=== PATIENT | female | born 1950 | race Hispanic/Latino ===

== ENCOUNTER 2021-04-11 06:31 | Day surgery (SDC) | payer MEDICARE, OTHER ==
[2021-04-11 07:24] LABS: Basophils % (Auto) 0.4 % (0.0-1.8); Eosinophils # (Auto) 0.2 K/mm3 (0.0-0.4); Eosinophils % (Auto) 3.9 % (0.0-4.3); Hematocrit 35.5 % (30.3-42.9); Hemoglobin 11.9 gm/dl (10.1-14.3); Lymphocytes # (Auto) 1.5 K/mm3 (1.2-5.4); Lymphocytes % (Auto) 29.2 % (13.4-35.0); Mean Corpuscular HGB Conc 34 % (30-34); Mean Corpuscular Volume 81 fl (79-97); Monocytes # (Auto) 0.7 K/mm3 (0.0-0.8); Monocytes % (Auto) 13.1 % (0.0-7.3); Platelet Count 211 K/mm3 (140-440); Red Blood Count 4.37 M/mm3 (3.65-5.03); Red Cell Distribution Width 16.9 % (13.2-15.2)
[2021-04-11 07:35] LABS: Blood Urea Nitrogen 10 mg/dL (7-17); Calcium 9.8 mg/dL (8.4-10.2); Hemolysis Index 6
[2021-04-11 07:36] LABS: INR 0.93 (0.87-1.13)
[2021-04-11 07:46] LABS: BUN/Creatinine Ratio 14
[2021-04-11] MEDS ORDERED: HEPARIN/NS 5000 UNIT/500ML 1,000 ML IR ONE (08:09)
[2021-04-11] MEDS ORDERED: NITROGLYCERIN SYRINGE 0 ML ONE (08:09)
[2021-04-11] MEDS: SODIUM CHLORIDE 0.9% 500 ML 500 ML IV SCH ×2 (08:30→08:59)
[2021-04-11] MEDS: LIDOCAINE (2%) 20 MG/1 ML VIAL 20 ML MDV INFILTRATI ONE ×2 (08:56→09:08)
[2021-04-11] MEDS: MIDAZOLAM 2 MG/2 ML INJ ONE ×2 (08:56→09:03)
[2021-04-11] MEDS: fentaNYL 100 MCG/2 ML INJ ONE ×2 (08:56→09:03)
[2021-04-11] MEDS: HEPARIN 10,000 UNITS/10 ML VIAL ONE ×2 (08:57→09:10)
[2021-04-11] MEDS: VERAPAMIL 5 MG/2 ML INJ ONE ×2 (08:57→09:10)
[2021-04-11] MEDS ORDERED: ASPIRIN EC 325 MG TAB PO ONE (09:00)
[2021-04-11] MEDS ORDERED: ONDANSETRON 4 MG/2 ML INJ ONE (09:20)
--- NOTE | 2021-04-11 09:58 | Cardiac Catherization Report ---
DATE OF SERVICE: 04/11/2021 INDICATION FOR PROCEDURE: The patient is a 70-year-old female with history of atypical chest pains and negative myocardial perfusion imaging in 11/2020. Continues to have chest pain and was advised to have cardiac catheterization for definitive diagnosis and treatment. The patient had cardiac catheterization performed in 03/2007, when it was felt patient has normal coronary anatomy. The patient is aware of the procedure, potential complications, and alternatives of therapy available. DESCRIPTION OF PROCEDURE: The patient was brought to the catheterization laboratory in a fasting condition. The patient was evaluated for moderate sedation and was felt to be an appropriate candidate for moderate sedation and received IV Versed and fentanyl. Subsequently, the patient was prepared in standard fashion. Local anesthesia was given in the right wrist area and right radial artery access was obtained using 21-gauge arterial puncture needle. Subsequently, 5-Haitian slender sheath was introduced. A 5-Haitian multipurpose catheter was used to obtain the left ventriculogram done in [place] projection using hand injection and also obtaining the left ventricular pressures followed by angiograms of the right coronary artery and left coronary artery using the same catheter in different views. At the end of the procedure, catheter and sheath were removed and good hemostasis was achieved using radial band application. Throughout the procedure, the patient was monitored with a pulse oximetry, hemodynamic monitoring and EKG monitoring. The patient tolerated the procedure well. At the end of the procedure, the patient is breathing normally and communicating normally with no focal deficits. The patient's moderate sedation started at 9:03 a.m. and ended at 9:16 a.m. The patient was transferred to the room in stable condition. She has transient nausea post-procedure and was given Zofran 4 mg. No hematoma noted in the right groin. Following findings were noted. HEMODYNAMICS: 1. Opening aortic pressure 150/66. Left ventricular pressure 150/33. No gradient across the aortic valve. Estimated ejection fraction 65%. Left ventriculogram done in [place] projection showed normal-sized left ventricle with normal contractility. End-diastolic and systolic volumes are normal. Mitral regurgitation could not be evaluated because of limited amount of dye injected. 2. Right coronary artery dominant vessel arises normally from right coronary cusp. Angiographically smooth and normal. 3. Left coronary artery arises normally from left coronary cusp. The left main is very short, immediately dividing into LAD and circumflex branches. LAD and circumflex artery showed minimal irregularities. FINAL IMPRESSION: 1. Normal-sized left ventricle with normal contractility with elevated end-diastolic pressure of 33 mmHg. 2. Essentially normal coronary anatomy with right coronary artery being dominant vessel. Minimal disease noted. At this time, etiology of her chest pains appeared to be nonischemic in nature. Consider continued risk factor modification and control of blood pressure. Findings were explained in detail to the patient. She understands. Procedure was uncomplicated. TID: [id number] RECEIPT: [id number] HERNESTO/BRIDGET
[2021-04-11 13:11] VITALS: BP 122/76
--- NOTE | 2021-04-11 14:19 | Short Stay Summary ---
Short Stay Documentation Date of service: 04/11/21 - History H&P: obtained from office - Allergies and Medications Current Medications: Allergies No Known Allergies Allergy (Verified 03/23/14 13:59) Home Medications Medication Instructions Recorded Confirmed Last Taken Type Aspirin 81 mg PO BID 03/23/14 04/11/21 04/10/21 History Metoprolol Xl [Metoprolol 150 mg PO BID 05/18/15 05/18/15 04/10/21 History SUCCINATE ER TAB] Amiodarone [Cordarone 200 MG TAB] 200 mg PO BID 04/11/21 04/11/21 04/10/21 History Apixaban [Eliquis] 5 mg PO BID 04/11/21 04/11/21 04/10/21 History Omeprazole 40 mg PO DAILY 04/11/21 04/11/21 04/10/21 History Telmisartan [Micardis] 80 mg PO DAILY 04/11/21 04/11/21 04/11/21 History hydroCHLOROthiazide 12.5 mg PO DAILY 04/11/21 04/11/21 04/10/21 History [Hydrochlorothiazide] Active Medications Sodium Chloride (Nacl 0.9% 500 Ml) 500 mls @ 50 mls/hr IV DIRECT [place] Stop: 04/11/21 16:59 Last Admin: 04/11/21 08:59 Dose: 50 mls/hr Documented by: - Physical exam Integumentary: other (Right radial cath site inspected Telfa Tegaderm in place, no bleeding or hematoma noted distal PMS intact) - Brief post op/procedure progress note Date of procedure: 04/11/21 Pre-op diagnosis: Chest Pain Post-op diagnosis: other (Normal Coronary Arteries) Procedure: [facility] see dictated cath report Anesthesia: local Estimated blood loss: none Condition: stable - Disposition Condition at discharge: Good Disposition: DC-01 TO HOME OR SELFCARE - Discharge Diagnoses (1) Normal coronary arteries Status: Acute Short Stay Discharge Plan Activity: advance as tolerated Diet: low fat, low cholesterol, low salt Wound: open to air, keep clean and dry, per wound nurse instructions Follow up with: LAMONT HOLCOMB MD [Primary Care Provider] - 7 Days ANITA SKAGGS MD [Staff Physician] - 7 Days (Pt should f/u with Dr Skaggs, [facility] heart specialists at our [place] location on 05/08/2021 at 2:45 PM. #[id number]) Forms: [facility] PCI D/C Instructions
--- NOTE | 2021-04-12 10:33 | Electrocardiograph Report ---
[facility] Test Date: 2021-04-11 Test Time: 08:10:15 Pat Name: TIP TINEO Department: Room: Gender: F Senior Net C Developer: WALLY : 1950 Requested By: FRANCISCO AYERS Order Number: [id number] Reading MD: Moon Chaidez Measurements Intervals Mcleod Rate: 58 P: 44 VT: 190 QRS: -86 QRSD: 151 T: 19 QT: 502 QTc: 493 Interpretive Statements Sinus rhythm RBBB and LAFB No previous ECG available for comparison Electronically Signed On 04-12-2021 10:32:56 EDT by Moon Chaidez
== END 2021-04-11 14:00 | disposition home or self-care (01) ==
LOC: CATHLABREC 06:31
PROVIDERS: ATTEND Internal Medicine
DX: R07.89 Other chest pain (principal); I25.10 Atherosclerotic heart disease of native coronary artery without angina pectoris; F17.210 Nicotine dependence, cigarettes, uncomplicated; I11.0 Hypertensive heart disease with heart failure; I50.9 Heart failure, unspecified; I48.91 Unspecified atrial fibrillation; J45.909 Unspecified asthma, uncomplicated; K21.9 Gastro-esophageal reflux disease without esophagitis; I49.3 Ventricular premature depolarization; I44.2 Atrioventricular block, complete; M19.90 Unspecified osteoarthritis, unspecified site; E66.9 Obesity, unspecified; Z79.899 Other long term (current) drug therapy; Z90.49 Acquired absence of other specified parts of digestive tract; Z98.891 History of uterine scar from previous surgery; Z98.890 Other specified postprocedural states; Z68.37 Body mass index [BMI] 37.0-37.9, adult
CPT/HCPCS: 80048; 85025; 85610; 93005; 93458; 99156; C1894; J1644; J2250; J2405; J3010; J7040; Q9967